=== PATIENT | female | born 1980 ===

== ENCOUNTER → 2018-06-29 12:20 | Observation (INO) ==
[2018-06-29 11:13] LABS: Bilirubin,Urine Negative (Negative); Blood,Urine Negative (Negative); Clarity,Urine Cloudy (Clear); Color,Urine Yellow (Yellow); Glucose,Urine (UA) Normal (Normal); Ketones,Urine Negative (Negative); Leukocyte Esterase,Urine Small (Negative); Nitrite,Urine Negative (Negative); Protein,Urine 30 mg/dL (Neg-Trace); Specific Gravity,Urine 1.025 (1.010-1.025); Urobilinogen,Urine Normal (Normal)
[2018-06-29 11:16] LABS: Bacteria,Urine Moderate per hpf (None-Few); Hyaline Casts,Urine None Seen per lpf (None-Few); Squamous Epithelial Cell,Urine Many per lpf (None-Few)
[2018-06-29 11:22] LABS: Amphetamine Screen,Urine Negative ng/mL (Cutoff=1000); Barbiturate Screen,Urine Negative ng/mL (Cutoff=200); Benzodiazepines Screen,Urine Negative ng/mL (Cutoff=200); Cannabinoid Screen,Urine Negative ng/mL (Cutoff = 50); Cocaine Screen,Urine Negative ng/mL (Cutoff= 300); Opiate Screen,Urine Negative ng/mL (Cutoff=300); Phencyclidine Screen,Urine Negative ng/mL (Cutoff=25)
[2018-06-29 11:31] LABS: RBC,Urine 0-3 per hpf (0-3)
--- NOTE | 2018-06-29 13:11 | OB/GYN Progress Note ---
Date of Encounter: 06/29/18 Time of Encounter: 13:08 - Assessment and Plan (1) 31 weeks gestation of Current Visit: Yes Status: Acute (2) Encounter for suspected PROM, with rupture of membranes not found Current Visit: Yes Status: Acute Speculum exam shows normal thick white discharge of , ferning negative. Discharged home with labor when to return to triage precautions. Patient verbalizes understanding Subjective - Subjective Interval history: 31+2 weeks gestation presents to triage with complaints of leaking of fluid. Patient has noticed an increased vaginal discharge leaking of fluid this morning. Reports good movement, denies vaginal bleeding or contractions Antepartum ROS: loss of fluid, movement normal, no vaginal bleeding, no contractions Objective - Vital Signs Vital Signs: Intake and Output 06/28/18 06/29/18 06/29/18 23:59 07:59 15:59 Other: Weight 106.503 kg Patient Weight 06/29/18 23:59 Weight 106.503 kg - Exam FHR: auscultation normal Abdomen: Present: soft, gravid Cervical dilation: Closed/thick/high - Labs Labs: Abnormal lab results Urine Clarity Cloudy (Clear) A 06/29/18 10:58 Urine Protein 30 mg/dL (Neg-Trace) H 06/29/18 10:58 Ur Leukocyte Esterase Small (Negative) H 06/29/18 10:58 Urine Microscopic WBC 3-5 per hpf (0-3) H 06/29/18 10:58 Ur Squamous Epith Cells Many per lpf (None-Few) H 06/29/18 10:58 Urine Bacteria Moderate per hpf (None-Few) H 06/29/18 10:58 Ur Culture Indicated? NO. (NO) A 06/29/18 10:58
== END | disposition home or self-care (01) ==
LOC: 1NENULAB
PROVIDERS: ADMIT Obstetrics & Gynecology; ATTEND Obstetrics & Gynecology

== ENCOUNTER 2018-08-26 11:32 | Inpatient (IN) ==
[2018-08-26] MEDS ORDERED: Metoclopramide 10 MG/2 ML VIAL IVP PRN (12:26)
[2018-08-26] MEDS ORDERED: Naloxone 0.4 MG/ML INJ IVP PRN (12:26)
[2018-08-26] MEDS ORDERED: Ondansetron 4 MG/2 ML VIAL IVP PRN (12:26)
[2018-08-26] MEDS ORDERED: *HR* Nalbuphine 10 MG/ML AMPUL IVP PRN (12:26)
[2018-08-26] MEDS ORDERED: Famotidine 20 MG/2 ML VIAL IVP PRN (12:26)
[2018-08-26] MEDS ORDERED: Ringers Solution, Lactated 1,000 ML IVC SCH (12:30)
[2018-08-26 12:45] LABS: Basophils # 0.1 K/mcL (0.0-0.2); Basophils % 0.4 %; Eosinophils # 0.1 K/mcL (0.0-0.6); Eosinophils % 0.4 %; Hematocrit 38.1 % (35.3-44.9); Immature Granulocytes % 0.4 % (0-4); Lymphocytes # 1.1 K/mcL (0.6-4.6); Lymphocytes % 8.3 %; Mean Corpuscular HGB Conc 34.1 g/dL (31.6-35.5); Mean Corpuscular Hemoglobin 30.6 pg (28.0-33.3); Mean Corpuscular Volume 89.6 fL (83.0-100.0); Mean Platelet Volume 11.8 fL (9.4-12.4); Monocytes # 0.6 K/mcL (0.0-1.3); Monocytes % 4.6 %; Neutrophils # 11.6 K/mcL (1.6-8.9); Platelet Count 199 K/mcL (140-400); Red Blood Count 4.25 M/mcL (3.82-4.97); Red Cell Distribution Width 13.6 % (11.5-14.5); Segmented Neutrophils % 85.9 %
[2018-08-26 12:47] LABS: Bilirubin,Urine Small (Negative); Blood,Urine Large (Negative); Clarity,Urine Cloudy (Clear); Color,Urine Dark Yellow (Yellow); Glucose,Urine (UA) Normal (Normal); Ketones,Urine Trace mg/dL (Negative); Leukocyte Esterase,Urine Moderate (Negative); Nitrite,Urine Negative (Negative); PH,Urine 5.5 pH Units (5.0-8.0); Protein,Urine 30 mg/dL (Neg-Trace); Specific Gravity,Urine 1.027 (1.010-1.025); Urobilinogen,Urine Normal (Normal)
[2018-08-26 12:50] LABS: Bacteria,Urine Many per hpf (None-Few); Squamous Epithelial Cell,Urine Many per lpf (None-Few); WBC,Urine 30-50 per hpf (0-3)
[2018-08-26 12:56] LABS: Amphetamine Screen,Urine Negative ng/mL (Cutoff=1000); Barbiturate Screen,Urine Negative ng/mL (Cutoff=200); Benzodiazepines Screen,Urine Negative ng/mL (Cutoff=200); Cannabinoid Screen,Urine Negative ng/mL (Cutoff = 50); Cocaine Screen,Urine Negative ng/mL (Cutoff= 300); Opiate Screen,Urine Negative ng/mL (Cutoff=300); Phencyclidine Screen,Urine Negative ng/mL (Cutoff=25); Protein/Creatinine Ratio,Urine 0.21 mg/mg (0.00-0.20)
[2018-08-26 13:00] LABS: RBC,Urine 15-30 per hpf (0-3)
[2018-08-26 13:04] LABS: Alanine Aminotransferase 31 Units/L (7-52); Aspartate Amino Transferase 39 Units/L (13-39); BUN/Creatinine Ratio 14 (6-26); Blood Urea Nitrogen 9 mg/dL (6-20); Lactate Dehydrogenase 156 Units/L (140-271); Uric Acid 6.2 mg/dL (2.3-7.6); eGFR For Non-African Americans > 60 (> 60)
[2018-08-26] MEDS ORDERED: miSOPROStol 25 MCG TABLET VG PRN (15:13)
[2018-08-26] MEDS ORDERED: miSOPROStol 25 MCG TABLET PO PRN (15:15)
--- NOTE | 2018-08-26 16:41 | OB/GYN History & Physical ---
Date of Encounter: 08/26/18 Time of Encounter: 16:08 Assessment and Plan (1) 39 weeks gestation of Current visit: Yes Status: Acute (2) Intrauterine Current visit: Yes Status: Acute Admit to L&D for induction of labor 50mcg PO cytotec q4h Labs - CBC and clot to hold Pain management plan - epidural - may have upon request GBS- Anticipate Dr. Mina is OB vice president of communications and available as needed (3) Type O blood, Rh positive Current visit: Yes Status: Acute Cord blood will be collected (4) Intact amniotic membranes during in third trimester Current visit: Yes Status: Acute History of Present Illness Chief complaint: IOL HPI: Ms. Arias is a 38 year old female at 39 weeks 4 days gestation with an estimated date of of 08/29/18 dated by LMP. She presents for induction today secondary to oligohydramnios with an ALEXIS of 3.9 cm in the office today. She denies rupture membranes. She states she does have a headache but also has a cold. She denies blurred vision. Her NST was also nonreactive in the office today. BPP was done and rated 6 out of 10. She endorses good movement and denies vaginal bleeding and contractions. She was followed by Dr. Riojas throughout her . is complicated by AMA, history of SPENCER-3, and recently elevated blood pressures. Labs: O+ GBS- HIV- Hep B drawn and pending T. Palladium - GC/CL- Rubella nonimmune Varicella nonimmune Past Med Surg Social Fam HX - Past Medical History Additional medical history: precancerous cells in cervix at 8 weeks into this Psychiatric history: no psych history - Past Surgical History Surgical History: no surgical history Additional surgical history: umbilical hernia surgery at age 4 - Social History Smoking Status: Current every day smoker Alcohol use: none Drug use: none - Family History Mother Living Status: Still Living Hx Family Endocrine Disorder: Yes (graves disease) Obstetrical History - Pregnancies : 2 Para: 0 Term: 0 : 0 Ab's: 1 Livin Medications and Allergies RX: No Known Home Drugs 08/26/18 [History] Allergy/AdvReac Type Severity Reaction Status Date / Time No Known Allergies Allergy Verified 08/26/18 12:48 Review of System OB All systems PM: reviewed and no additional remarkable complaints except as stated Exam - Constitutional Constitutional: well developed, well nourished, no acute distress, average body habitus - HEENT HEENT: Normocephaly, Mucus Membranes Moist - Neck Neck exam: full ROM - Lungs Respiratory exam: CTAB - Cardiovascular Cardiovascular exam: RRR, +S1, +S2 - Breasts Breast: bilateral: normal - Abdomen Abdomen: Present: bowel sounds normal, gravid, non tender - Extremities Extremities exam: normal capillary refill, normal inspection, radial pulses palpable and symmetrical Deep Tendon Reflex Grade: 2+ Normal - Vulva Vulva: bilateral: normal - Vagina Vagina: Present: normal moisture - Cervix Dilation: 3 Effacement: 80 Station: -2 - Uterus Uterus exam: Present: normal size, normal contour - Adnexa Adnexa: bilateral: normal - Anus/Rectum Anus/Rectum: Present: normal perianal skin Results Result Diagrams: 08/26/18 12:18 08/26/18 12:18 Abnormal lab results WBC 13.5 K/mcL (4.3-11.1) H 08/26/18 12:18 Neutrophils # 11.6 K/mcL (1.6-8.9) H 08/26/18 12:18 Urine Clarity Cloudy (Clear) A 08/26/18 12:27 Ur Specific Daisy 1.027 (1.010-1.025) H 08/26/18 12:27 Urine Protein 30 mg/dL (Neg-Trace) H 08/26/18 12:27 Urine Ketones Trace mg/dL (Negative) H 08/26/18 12:27 Urine Blood Large (Negative) H 08/26/18 12:27 Urine Bilirubin Small (Negative) H 08/26/18 12:27 Ur Leukocyte Esterase Moderate (Negative) H 08/26/18 12:27 Urine Microscopic RBC 15-30 per hpf (0-3) H 08/26/18 12:27 Urine Microscopic WBC 30-50 per hpf (0-3) H 08/26/18 12:27 Ur Squamous Epith Cells Many per lpf (None-Few) H 08/26/18 12:27 Urine Bacteria Many per hpf (None-Few) H 08/26/18 12:27 Protein/Creatinin Ratio 0.21 mg/mg (0.00-0.20) H 08/26/18 12:27 Urine Total Protein 51 mg/dL (1-14) H 08/26/18 12:27 All other labs normal. - VTE Reasons for not Prescribing Prophylaxis: Treatment not Indicated - Low risk for VTE
--- NOTE | 2018-08-26 19:55 | OB Labor Progress Note ---
Date of Encounter: 08/26/18 Time of Encounter: 19:52 Labor Progress Note - Subjective Subjective: Patient comfortable with cramping. - Cervix Cervix: 3/80/-2 - Heart Tones Heart Tones: Baseline 140 Moderate variability Accelerations present 15 x 15 No decelerations FHR category I - [place]: No toco activity. Patient reports cramping - Interventions Interventions: SVE Start pitocin - Plan Plan: Continue active management Start pitocin and increase to adequate contraction pattern Consider AROM at a later point in labor Anticipate vaginal delivery
[2018-08-26] MEDS: Oxytocin 20 units/ LR 1000 mL 20 UNIT/1,000 ML BAG IVC SCH (20:17)
[2018-08-26] MEDS ORDERED: Loratadine 10 MG TABLET PO SCH (20:45)
[2018-08-26] MEDS ORDERED: Epidural Premix (fent/bupiv) 110 ML EP SCH (23:45)
[2018-08-26] MEDS ORDERED: *HR* FentaNYL (PF) 100 MCG/2 ML VIAL EP ONE (23:49)
[2018-08-26] MEDS ORDERED: Bupivacaine-MPF 0.25% 10 ML VIAL EP ONE (23:49)
--- NOTE | 2018-08-26 23:51 | OB Labor Progress Note ---
Date of Encounter: 08/26/18 Time of Encounter: 23:46 Labor Progress Note - Subjective Subjective: Patient aware of contractions but states they are not painful. - Cervix Cervix: 4/70/-2 - Heart Tones Heart Tones: Baseline 130 Moderate variability Accelerations present 15x15 No decelerations FHR Category I - [place]: Contractions every 4-5 minutes and palpate moderate - Interventions Interventions: SVE Position changes - Plan Plan: Continue active management Frequent position changes with peanut ball Anticipate Recheck in 2 hours Consider AROM at that time
--- NOTE | 2018-08-26 23:53 | Anesthesia Evaluation PreOp ---
Date of Encounter: 08/26/18 Time of Encounter: 23:29 - Past History Planned Operation: labor epidural Cardiac History: Denies any Significant Hx, HTN (states bp higher than normal last few weeks of , 140s and 150s over 80s and 90s, receiving po labetalol at present. states on no meds at home for bp.) Pulmonary History: Smoker (smoked since 1993, currently smoking about half pack per day.) MANAGER PROCUREMENT History: Denies Any Significant HX Other Medical History: Denies Any Significant HX Anesthesia History: No Prior Anesthetic Complications, Past Anesthesia (umbilical hernia repair, no problems with anesthesia. No FHAP.) : Yes Alcohol Use: none Drug use: none Medications and Allergies No Known Home Drugs 08/26/18 [History] Allergy/AdvReac Type Severity Reaction Status Date / Time No Known Allergies Allergy Verified 08/26/18 12:48 - Meds/Allergy Pre-op Review Medications Reviewed: Yes Allergies Reviewed: Yes Beta Blockers on Current Med List: No Anesthesia Results - Labs 08/26/18 12:18 08/26/18 12:18 Anesthesia Exam 140/93, 62, 16. FHTs 120s. Height: 5'6" Weight: 108kg NPO (# of Hours): >8 Pain Scale: 0 Pain Scale Used: Numeric (1 - 10) - HEENT Pupil (Motor): Pupils equal, EOMI Mallampati: II Teeth: Normal Oral Opening: Greater than 3 - MANAGER PROCUREMENT LOC: Oriented MANAGER PROCUREMENT Motor: Normal RUE, Normal LUE, Normal RLE, Normal LLE, Normal Face MANAGER PROCUREMENT Sensory: Normal: RUE, LUE, RLE, LLE, Face - Cardiac Rhythm: Regular - Pulmonary Breath Sounds: bilateral Clear Respiratory Effort: Symmetrical Anesthesia Assess/Plan ASA Score: 2 Level of consciousness: Cooperative, Oriented, Tranquil Anesthetic Plan: Epidural Monitoring Plan: Standard Monitors
[2018-08-27] MEDS ORDERED: Lidocaine -MPF 2% 5 ML VIAL ONE (00:14)
--- NOTE | 2018-08-27 00:59 | Anesthesia Procedures ---
Addendum entered and electronically signed by Gino Mayo CRNA 08/27/18 12:29: Delivery Date: 08/27/18 Infant Delivery Time: 11:01 Original Note: Date of Encounter: 08/27/18 Time of Encounter: 00:26 Procedures: Anesthesia - Epidural/Spinal Patient ID/Chart reviewed: Yes Patient examined: Yes OB Eval: Gestational age: 39 OB Eval: : 2 OB Eval: Hx Para: 0 OB Eval: Dilated at (cm): 4 OB Eval: Contractions: Non-stressed pattern Consent Obtained: Yes Supplemental Oxygen: None/Room Air Site Prep: Aseptic Technique, Sterile prep and drape, Povidone-Iodine 1% Patient position: upright Local Anesthetic: Lidocaine 1% Amount of Local Anesthetic used: 3 Touhy Needle Gauge: 18 Touhy Needle Depth (cm): 7 Catheter Depth at Skin (cm): 18 Test Dose (1.5% Lido + Epi): Volume given (mls): 3 Test Dose Result: Negative Loading Dose: 0.25% Marcaine (mls): 8 Loading Dose: Fentanyl (mcg): 100 Loading Dose Administered: Thru Catheter Infusion Med: 0.125% Bupivacaine w/ 2 mcg/ml Fentanyl Infusion Rate (mls/hr): [address]: Tegaderm, Tape Interspace Used: L3-L4 Loss of Resistance (RICKY): Yes Blood: No CSF: No Paresthesia: No Vitals + FHT's: Vital Signs Time 0026 0040 0045 0050 BP 172/88 164/77 120/65 122/74 Pulse 74 77 81 69 FHTs 130 130 130 130
--- NOTE | 2018-08-27 01:49 | OB Labor Progress Note ---
Date of Encounter: 08/27/18 Time of Encounter: 01:47 Labor Progress Note - Subjective Subjective: Patient comfortable with epidural - Cervix Cervix: 6/80/-2 - Heart Tones Heart Tones: Baseline 140 Moderate variability Accelerations present 15x15 Current late decelerations - working to resolve FHR Category II - [place]: Contractions not traceable via toco - IUPC adequate - Interventions Interventions: SVE AROM - Scant amount of clear fluid IUPC placed - Plan Plan: Continue active management Continue frequent position changes until decelerations resolve Peanut ball Anticipate
--- NOTE | 2018-08-27 10:13 | OB Labor Progress Note ---
Date of Encounter: 08/27/18 Time of Encounter: 10:17 Labor Progress Note - Subjective Subjective: Patient in bed in lithotomy position pushing with nursing staff. Called into room to assess pushing and perineum. - Vital Signs Vital Signs: VSS - Cervix Cervix: Complete/Complete/+2 - Heart Tones Heart Tones: Category II. Baseline 140 moderate variability, variables with each contraction, quickly return to baseline after contraction/push, responsive to scalp stimulation. Dr Shelley notified of tracing. - [place]: Contractions every 3-4 minutes - Plan Plan: Condyloma noted to perineum Continue to push Restart pitocin Anticipate vaginal delivery POC per consult with Dr Shelley
--- NOTE | 2018-08-27 11:41 | OB/GYN Procedure Note ---
Delivery - Delivery Date: 08/27/18 Provider: Lourdes Simmons Intrapartum events: meconium Delivery induction: misoprostol Delivery augmentation: rupture of membranes, pitocin Delivery monitor: external FHT, external uterine, internal uterine Anesthesia: epidural Quantitated Blood Loss: 450 - (s) Infant A Delivery Date: 08/27/18 Infant Delivery Time: 11:01 Presentation: vertex Position: JUAN LUIS Route of delivery: Gender: Male Viability: Viable Pounds: 7 Ounces: 15 Weight Gram: 3.605 kg at 1 minute: 8 at 5 mins: 9 Shoulder Dystocia: not encountered Specimens collected: cord blood Placenta: spontaneous Cord: nuchal cord, 3 umbilical vessels, delivered through nuchal - Repair Episiotomy: none - Complications Delivery complications: none Delivery comments: Patient progressed to complete and began coached pushing to of viable, vigorous male infant in the JUAN LUIS position. placed on maternal abdomen, warmed, dried, and stimulated. Loose nuchal - delivered through, light meconium stained fluid, no shoulder dystocia. Cord double clamped and cut after pulsations ceased. Apgars 8 and 9 at one and five minutes of age respectively. Placenta delivered spontaneously with trailing membranes. Membranes removed with gentle twisting motion. Placenta and membranes appear intact and present upon inspection. Uterus firm and at U after delivery of placenta. Upon perineal inspection, small periclitoral hemostatic laceration noted; left to heal by second intention. Dr Shelley called to room to take over repair due to heavy bleeding from perineal laceration. and mother stable in recovery for 2 hours. - Disposition Mom disposition: stable in LDR disposition: stable in LDR - Comments Comments: I was called into the room to repair a 2nd degree laceration. I repaired it with 3-0 vicryl and also repaired a left sulcul laceration with 3-0 vicryl. She has uterine atony and I gave Hemabate .25mg x 1 and cytotec 1000 mcg rectally with resolution of the atony. An additional 100cc was noted for EBL.
[2018-08-27] MEDS: Oxytocin 20 units/ LR 1000 mL 20 UNIT/1,000 ML BAG IVC SCH (12:09)
[2018-08-27] MEDS ORDERED: Benzocaine/Menthol 56 GM AEROSOL SPRAY TP PRN (12:10)
[2018-08-27] MEDS ORDERED: Oxytocin 20 units/ LR 1000 mL 20 UNIT/1,000 ML BAG IVC ONE (12:10)
[2018-08-27] MEDS ORDERED: Measles/Mumps/Rubella Vacc 0.5 ML VIAL SQ PRN (12:10)
[2018-08-27] MEDS ORDERED: *HR* HYDROcodone/Acet 5/325 mg TABLET PO PRN (12:10)
[2018-08-27] MEDS ORDERED: Sennosides 8.6 MG TABLET PO PRN (12:10)
[2018-08-27] MEDS ORDERED: Oxytocin 20 units/ LR 1000 mL 20 UNIT/1,000 ML BAG IVC SCH (12:10)
[2018-08-27] MEDS ORDERED: Acetaminophen 325 MG TABLET PO PRN (12:10)
[2018-08-27] MEDS ORDERED: Calcium Gluconate 1,000 MG/10 ML VIAL IVPB PRN (12:26)
[2018-08-27] MEDS ORDERED: *HR* Labetalol 20 MG/4 ML SYRINGE IVP ONE ×3 (13:03→13:59)
[2018-08-27] MEDS: Magnesium Sulfate 20 gm/500mL 20 GM/500 ML IV.SOLN IVC SCH (13:27)
[2018-08-27] MEDS: Ibuprofen 600 MG TABLET PO PRN (18:16)
[2018-08-28] MEDS: Magnesium Sulfate 20 gm/500mL 20 GM/500 ML IV.SOLN IVC SCH (04:38)
[2018-08-28 06:43] LABS: Basophils % 0.2 %; Eosinophils # 0.1 K/mcL (0.0-0.6); Eosinophils % 0.5 %; Hematocrit 29.6 % (35.3-44.9); Immature Granulocytes % 0.6 % (0-4); Lymphocytes # 1.6 K/mcL (0.6-4.6); Mean Corpuscular HGB Conc 34.5 g/dL (31.6-35.5); Mean Corpuscular Hemoglobin 30.9 pg (28.0-33.3); Mean Corpuscular Volume 89.7 fL (83.0-100.0); Monocytes # 0.7 K/mcL (0.0-1.3); Monocytes % 4.5 %; Neutrophils # 13.7 K/mcL (1.6-8.9); Platelet Count 184 K/mcL (140-400); Segmented Neutrophils % 84.2 %
[2018-08-28] MEDS: Ibuprofen 600 MG TABLET PO PRN (06:43)
[2018-08-28 06:44] LABS: Hemoglobin 10.2 g/dL (11.5-15.4)
[2018-08-28 07:03] LABS: Alanine Aminotransferase 56 Units/L (7-52); Aspartate Amino Transferase 136 Units/L (13-39); BUN/Creatinine Ratio 10 (6-26); Blood Urea Nitrogen 6 mg/dL (6-20); Lactate Dehydrogenase 284 Units/L (140-271); Uric Acid 5.9 mg/dL (2.3-7.6); eGFR For Non-African Americans > 60 (> 60)
[2018-08-28] MEDS ORDERED: miSOPROStol 100 MCG TABLET PO ONE (09:34)
[2018-08-28] MEDS: Prenatal Vit/FA 1 EACH TABLET PO SCH (09:37)
--- NOTE | 2018-08-28 10:34 | OB/GYN Progress Note ---
Date of Encounter: 08/28/18 Time of Encounter: 10:33 - Assessment and Plan (1) Vaginal delivery Current Visit: Yes Status: Acute Continue routine care Anticipate discharge home tomorrow (2) PIH ( induced hypertension) Current Visit: Yes Status: Acute Patient on Magnesium sulfate until 1245 Repeat PIH labs in AM Continue VSS per protocol Qualifiers: Trimester: third trimester Qualified Code(s): O13.3 - Gestational [-induced] hypertension without significant proteinuria, third trimester Subjective - Subjective Principal diagnosis: Status Post vaginal delivery on Magnesium sulfate Interval history: Ms. Arias is a 38 year old female day following a vaginal delivery. Patient presented for induction of labor secondary to oligohydramnios with an ALEXIS of 3.9 cm. was complicated by AMA, history of SPENCER-3, and recently elevated blood pressures. Following vaginal delivery there was a significant increase in BPs and Magnesium sulfate was started. Patient is on Labetalol 200mg po TID. Patient is doing well today. Denies [place], visual disturbances or epigastric pain. Magnesium is to be off at 1245 today. Patient reports: appetite normal, pain well controlled, ambulating normally, other ([place] catheter draining clear yellow urine) [place]: doing well (In room with Patient), bottle feeding Objective - Latest Vital Signs Latest vital signs: Vital Signs Temp Pulse Pulse Resp BP Pulse Ox 08/28/18 08:43 97.6 F 72 18 139/87 97 08/28/18 08:10 70 16 137/82 08/28/18 07:10 72 16 146/92 08/28/18 06:10 79 16 145/86 08/28/18 04:41 75 12 150/87 08/28/18 03:22 81 17 129/75 08/28/18 02:01 74 16 116/72 08/28/18 01:00 97 08/28/18 00:56 75 16 125/72 08/28/18 00:00 77 16 121/76 08/27/18 23:00 80 16 125/75 08/27/18 22:00 81 16 119/75 08/27/18 21:00 77 16 128/78 08/27/18 20:00 79 16 127/72 08/27/18 19:00 78 18 121/72 08/27/18 18:21 98.4 F 77 16 144/92 97 08/27/18 18:10 98.4 F 77 76 16 144/92 97 08/27/18 17:06 98.1 F 72 72 18 138/81 Intake and Output 08/27/18 08/28/18 08/28/18 23:59 07:59 15:59 Intake Total 740 / 740 300 / 300 Output Total 1200 / 1200 1500 / 1500 200 / 200 Balance -460 / -460 -1200 / -1200 -200 / -200 Intake: IV Fluids 500 / 500 300 / 300 Magnesium Sulfate Premix 20 gm/ 500 / 500 500mL 20 gm In 500 ml @ 2 GM/HR 50 mls/hr IVC .Q10H SRIDHAR Rx#: [id number] Pitocin 20 unit In 1,000 ml @ 300 / 300 125 mls/hr IVC .Q8H SRIDHAR Rx#: [id number] Oral 240 / 240 Output: Urine 700 / 700 1500 / 1500 200 / 200 Catheter 500 / 500 Other: Stool Characteristics Normal for Patient Weight 110 kg - Exam Lungs: bilateral: normal Chest: Normal S1, Normal S2 Extremities: Present: normal Abdomen: Present: normal appearance, soft Uterus: Present: normal, firm Uterus Position: At Umbilicus, Midline Comments: 2+ DTRs, NO clonus - Labs Labs: Laboratory Results - last 24 hr 08/28/18 08/28/18 04:00 06:32 WBC 16.2 H RBC 3.30 L Hgb 10.2 L D Hct 29.6 L MCV 89.7 MCH 30.9 MCHC 34.5 RDW 14.0 Plt Count 184 MPV 11.0 Immature Gran % 0.6 Seg Neutrophils % 84.2 Lymphocytes % 10.0 Monocytes % 4.5 Eosinophils % 0.5 Basophils % 0.2 Neutrophils # 13.7 H Lymphocytes # 1.6 Monocytes # 0.7 Eosinophils # 0.1 Basophils # 0.0 BUN 6 Creatinine 0.60 Est GFR ( Amer) > 60 Est GFR (Non-Af Amer) > 60 BUN/Creatinine Ratio 10 Uric Acid 5.9 AST 136 H ALT 56 H Lactate Dehydrogenase 284 H
[2018-08-29] MEDS: Ibuprofen 600 MG TABLET PO PRN ×2 (00:12→20:14)
[2018-08-29 05:23] LABS: Basophils # 0.1 K/mcL (0.0-0.2); Basophils % 0.4 %; Eosinophils # 0.2 K/mcL (0.0-0.6); Hematocrit 28.5 % (35.3-44.9); Hemoglobin 9.5 g/dL (11.5-15.4); Immature Granulocytes % 0.7 % (0-4); Lymphocytes # 2.1 K/mcL (0.6-4.6); Lymphocytes % 13.1 %; Mean Corpuscular HGB Conc 33.3 g/dL (31.6-35.5); Mean Corpuscular Hemoglobin 30.6 pg (28.0-33.3); Mean Corpuscular Volume 91.9 fL (83.0-100.0); Mean Platelet Volume 11.2 fL (9.4-12.4); Monocytes # 0.8 K/mcL (0.0-1.3); Monocytes % 5.1 %; Neutrophils # 12.5 K/mcL (1.6-8.9); Platelet Count 190 K/mcL (140-400); Red Cell Distribution Width 14.4 % (11.5-14.5); Segmented Neutrophils % 79.7 %
[2018-08-29 05:42] LABS: Alanine Aminotransferase 61 Units/L (7-52); Aspartate Amino Transferase 118 Units/L (13-39); BUN/Creatinine Ratio 17 (6-26); Blood Urea Nitrogen 10 mg/dL (6-20); Lactate Dehydrogenase 304 Units/L (140-271); Uric Acid 5.8 mg/dL (2.3-7.6); eGFR For Non-African Americans > 60 (> 60)
[2018-08-29] MEDS: Prenatal Vit/FA 1 EACH TABLET PO SCH (08:40)
[2018-08-29] MEDS: NIFEdipine XL (24 HR) 30 MG TAB.ER.24 PO SCH (10:07)
[2018-08-30] MEDS: Ibuprofen 600 MG TABLET PO PRN (09:24)
[2018-08-30] MEDS: Prenatal Vit/FA 1 EACH TABLET PO SCH (09:24)
[2018-08-30] MEDS: NIFEdipine XL (24 HR) 30 MG TAB.ER.24 PO SCH (09:25)
--- NOTE | 2018-08-30 09:25 | OB/GYN Progress Note ---
Date of Encounter: 08/30/18 Time of Encounter: 09:22 - Assessment and Plan (1) Preeclampsia in period Current Visit: Yes Status: Acute Continue Procardia 30 mg XL daily Continue labetalol 300 mg 3 times a day (2) Vaginal delivery Current Visit: Yes Status: Acute Continue routine care Ice pack when necessary Ibuprofen when necessary Dermoplast when necessary Potential for discharge home later this afternoon pending blood pressures stay in mild to moderate range (3) anemia Current Visit: Yes Status: Acute Increase iron supplementation to twice a day Subjective - Subjective Principal diagnosis: s/p with PP pre-eclampsia Interval history: Feeling well. Out of bed without dizziness. Some perineal discomfort-using ice pack. Cramping minimal, using ibuprofen. Bottlefeeding every 2-3 hours. Voiding without difficulty. Passing flatus, no BM yet. Tolerating regular diet. Patient denies headache, blurry vision, nausea, vomiting, epigastric pain. Patient reports: appetite normal, voiding normally, pain well controlled, ambulating normally [place]: doing well, bottle feeding Objective - Latest Vital Signs Latest vital signs: Vital Signs Temp Pulse Pulse Resp BP Pulse Ox 08/30/18 08:46 98.2 F 74 74 16 151/96 98 08/30/18 03:50 98.4 F 72 16 142/88 96 08/29/18 23:25 97.3 F L 63 16 145/89 99 08/29/18 19:20 98.2 F 81 16 124/76 98 08/29/18 18:00 98.0 F 81 18 153/89 97 08/29/18 15:05 70 16 122/78 97 08/29/18 11:18 98.1 F 77 14 160/89 96 08/29/18 10:02 172/108 Intake and Output 08/29/18 08/30/18 08/30/18 23:59 07:59 15:59 Intake Total 800 / 800 500 / 500 Output Total 650 / 650 250 / 250 150 / 150 Balance 150 / 150 250 / 250 -150 / -150 Intake: Oral 800 / 800 500 / 500 Output: Urine 650 / 650 250 / 250 150 / 150 Other: Weight 108.409 kg Patient Weight 08/30/18 23:59 Weight 108.409 kg - Exam Lungs: bilateral: normal Chest: Normal S1, Normal S2 Extremities: Present: normal Abdomen: Present: normal appearance, soft Uterus: Present: normal, firm Uterus Position: 1 Finger Below Umbilicus, Midline
[2018-08-30 18:07] VITALS: BP 149/94
--- NOTE | 2018-08-30 18:54 | Discharge Summary ---
Date of Encounter: 08/30/18 Time of Encounter: 18:52 - Discharge Diagnosis (1) Preeclampsia in period Priority: Secondary Status: Acute Comments: Continue Procardia XL 30 mg daily Continue labetalol 300 mg 3 times a day Return Wednesday to office for blood pressure evaluation (2) Vaginal delivery Priority: Primary Status: Acute Comments: Feeling well Pain well-controlled by mouth pain meds Ambulating independently Voiding independently Lochia light Passing flatus, no BM yet Tolerating regular diet Vital signs stable Discharge home (3) anemia Priority: Secondary Status: Acute Comments: Continue iron supplementation daily for 3 month - Discharge Medications Prescriptions: Ibuprofen [Motrin] 600 mg PO Q6HR PRN #30 tablet PRN Reason: Cramping Docusate [Colace] 100 mg PO BID #60 capsule Ferrous Sulfate 325 mg PO BIDWM #60 tablet Labetalol [Trandate] 300 mg PO TID #90 tablet NIFEdipine XL (24 HR) [Procardia XL] 30 mg PO DAILY 30 Days #30 tab.er.24 Home Medications: Acetaminophen [Tylenol] 650 mg PO Q6HR PRN tablet 08/30/18 [Rx] Benzocaine/Menthol [place] [Dermoplast [place]] 1 appl TP QID PRN aerosol 08/30/18 [Rx] Docusate [Colace] 100 mg PO BID #60 capsule 08/30/18 [Rx] Ferrous Sulfate 325 mg PO BIDWM #60 tablet 08/30/18 [Rx] Ibuprofen [Motrin] 600 mg PO Q6HR PRN #30 tablet 08/30/18 [Rx] Labetalol [Trandate] 300 mg PO TID #90 tablet 08/30/18 [Rx] NIFEdipine XL (24 HR) [Procardia XL] 30 mg PO DAILY 30 Days #30 tab.er.24 08/30/18 [Rx] Vit/FA 1 each PO DAILY tablet 08/30/18 [Rx] Allergies/Adverse Reactions: Allergy/AdvReac Type Severity Reaction Status Date / Time No Known Allergies Allergy Verified 08/26/18 12:48 Data Procedures and tests throughout hospitalization: Laboratory Tests 08/26/18 08/26/18 08/26/18 12:18 12:18 12:18 WBC 13.5 H RBC 4.25 Hgb 13.0 Hct 38.1 MCV 89.6 MCH 30.6 MCHC 34.1 RDW 13.6 Plt Count 199 MPV 11.8 Immature Gran % 0.4 Seg Neutrophils % 85.9 Lymphocytes % 8.3 Monocytes % 4.6 Eosinophils % 0.4 Basophils % 0.4 Neutrophils # 11.6 H Lymphocytes # 1.1 Monocytes # 0.6 Eosinophils # 0.1 Basophils # 0.1 BUN 9 Creatinine 0.63 Est GFR ( Amer) > 60 Est GFR (Non-Af Amer) > 60 BUN/Creatinine Ratio 14 Uric Acid 6.2 AST 39 ALT 31 Lactate Dehydrogenase 156 Urine Color Urine Clarity Urine pH Ur Specific Jbphh Urine Protein Urine Glucose (UA) Urine Ketones Urine Blood Urine Nitrite Urine Bilirubin Urine Urobilinogen Ur Leukocyte Esterase Urine Microscopic RBC Urine Microscopic WBC Ur Squamous Epith Cells Urine Bacteria Urine Creatinine Protein/Creatinin Ratio Urine Total Protein Urine Opiates Screen Ur Barbiturates Screen Ur Phencyclidine Scrn Ur Amphetamines Screen U Benzodiazepines Scrn Urine Cocaine Screen U Marijuana (THC) Screen Ur Drug Screen Interp Hep Bs Antigen Nonreactive 08/26/18 08/26/18 08/26/18 12:27 12:27 12:27 WBC RBC Hgb Hct MCV MCH MCHC RDW Plt Count MPV Immature Gran % Seg Neutrophils % Lymphocytes % Monocytes % Eosinophils % Basophils % Neutrophils # Lymphocytes # Monocytes # Eosinophils # Basophils # BUN Creatinine Est GFR ( Amer) Est GFR (Non-Af Amer) BUN/Creatinine Ratio Uric Acid AST ALT Lactate Dehydrogenase Urine Color Dark Yellow Urine Clarity Cloudy A Urine pH 5.5 Ur Specific Jbphh 1.027 H Urine Protein 30 H Urine Glucose (UA) Normal Urine Ketones Trace H Urine Blood Large H Urine Nitrite Negative Urine Bilirubin Small H Urine Urobilinogen Normal Ur Leukocyte Esterase Moderate H Urine Microscopic RBC 15-30 H Urine Microscopic WBC 30-50 H Ur Squamous Epith Cells Many H Urine Bacteria Many H Urine Creatinine 244 Protein/Creatinin Ratio 0.21 H Urine Total Protein 51 H Urine Opiates Screen Negative Ur Barbiturates Screen Negative Ur Phencyclidine Scrn Negative Ur Amphetamines Screen Negative U Benzodiazepines Scrn Negative Urine Cocaine Screen Negative U Marijuana (THC) Screen Negative Ur Drug Screen Interp See Below Hep Bs Antigen 08/28/18 08/28/18 08/29/18 04:00 06:32 05:07 WBC 16.2 H 15.7 H RBC 3.30 L 3.10 L Hgb 10.2 L D 9.5 L Hct 29.6 L 28.5 L MCV 89.7 91.9 MCH 30.9 30.6 MCHC 34.5 33.3 RDW 14.0 14.4 Plt Count 184 190 MPV 11.0 11.2 Immature Gran % 0.6 0.7 Seg Neutrophils % 84.2 79.7 Lymphocytes % 10.0 13.1 Monocytes % 4.5 5.1 Eosinophils % 0.5 1.0 Basophils % 0.2 0.4 Neutrophils # 13.7 H 12.5 H Lymphocytes # 1.6 2.1 Monocytes # 0.7 0.8 Eosinophils # 0.1 0.2 Basophils # 0.0 0.1 BUN 6 Creatinine 0.60 Est GFR ( Amer) > 60 Est GFR (Non-Af Amer) > 60 BUN/Creatinine Ratio 10 Uric Acid 5.9 AST 136 H ALT 56 H Lactate Dehydrogenase 284 H Urine Color Urine Clarity Urine pH Ur Specific Jbphh Urine Protein Urine Glucose (UA) Urine Ketones Urine Blood Urine Nitrite Urine Bilirubin Urine Urobilinogen Ur Leukocyte Esterase Urine Microscopic RBC Urine Microscopic WBC Ur Squamous Epith Cells Urine Bacteria Urine Creatinine Protein/Creatinin Ratio Urine Total Protein Urine Opiates Screen Ur Barbiturates Screen Ur Phencyclidine Scrn Ur Amphetamines Screen U Benzodiazepines Scrn Urine Cocaine Screen U Marijuana (THC) Screen Ur Drug Screen Interp Hep Bs Antigen 08/29/18 05:07 WBC RBC Hgb Hct MCV MCH MCHC RDW Plt Count MPV Immature Gran % Seg Neutrophils % Lymphocytes % Monocytes % Eosinophils % Basophils % Neutrophils # Lymphocytes # Monocytes # Eosinophils # Basophils # BUN 10 Creatinine 0.60 Est GFR ( Amer) > 60 Est GFR (Non-Af Amer) > 60 BUN/Creatinine Ratio 17 Uric Acid 5.8 AST 118 H ALT 61 H Lactate Dehydrogenase 304 H Urine Color Urine Clarity Urine pH Ur Specific Jbphh Urine Protein Urine Glucose (UA) Urine Ketones Urine Blood Urine Nitrite Urine Bilirubin Urine Urobilinogen Ur Leukocyte Esterase Urine Microscopic RBC Urine Microscopic WBC Ur Squamous Epith Cells Urine Bacteria Urine Creatinine Protein/Creatinin Ratio Urine Total Protein Urine Opiates Screen Ur Barbiturates Screen Ur Phencyclidine Scrn Ur Amphetamines Screen U Benzodiazepines Scrn Urine Cocaine Screen U Marijuana (THC) Screen Ur Drug Screen Interp Hep Bs Antigen Date of admission: 08/26/18 11:32 Primary care physician: PCP NONE Consults: 08/27/18 12:10 Consult to Bilingual Hr Generalist [CONS] Routine Comment: Vaginal delivery, consult needed Discharging clinician: Lourdes Leiva Anticipated date of discharge: 08/30/18 - Patient Status Disposition: Home, Self-Care Condition: Good Functional capacity at discharge: independent ambulation Overall status at discharge: patient is progressing back to baseline - Discharge Instructions Follow Up With: NONE,PCP [Primary Care Provider] - Eric Riojas DO [Partnered Physician] - - Diet and Activity Activity: increase activity as tolerated Diet: regular diet Hospital Course Reason for admission: IUP at term Delivery: Episiotomy: none Laceration: 2nd degree Other procedures: none complications: other (pre-eclampsia) Discharge diagnosis: IUP at term delivered [place] baby: male Time spent discussing smoking cessation with patient: 3 to 10 minutes Time Attestation: Total time spent providing and/or coordinating discharge services: Time Spent: Less than 30 minutes Exam - Constitutional Vitals: Temp Pulse Resp BP Pulse Ox 97.7 F 63 16 149/94 98 08/30/18 15:58 08/30/18 17:25 08/30/18 17:25 08/30/18 18:06 08/30/18 11:26 General appearance IM: A&O X 3 - Respiratory Respiratory exam: Present: CTAB - Cardiovascular Cardiovascular exam IM: Present: RRR, +S1, +S2 - GI/Abdominal GI/Abdominal exam IM: normal bowel sounds, no peritoneal signs - Rectal Rectal exam: deferred - Uterine Tone: Firm Uterus Position: At Umbilicus, Midline - Extremities Exam Extremities exam IM: Present: normal capillary refill, normal inspection, radial pulses palpable and symmetrical - Neurological Exam Neurological exam: alert, CN II-XII intact, normal gait, oriented X3, reflexes normal, no focal deficits, strengths equal and symetr throughout - Psychiatric Additional comments: Signs and symptoms of depression reviewed with patient. She ve rbalizes understanding of when to seek help.
== END 2018-08-30 19:23 | disposition home or self-care (01) | DRG 806 ==
LOC: 1NENULAB → OBSVTOIN 11:32 → 1NENULAB 08-27 10:36 → 1NENUOBS 08-27 18:30
PROVIDERS: ADMIT Obstetrics & Gynecology; ATTEND Obstetrics & Gynecology